=== PATIENT | male | born 1950 | race American Indian/Alaskan Native ===

== ENCOUNTER 2021-04-18 21:56 | Emergency (ER) | payer MEDICARE ==
[2021-04-18] MEDS ORDERED: SODIUM CHLORIDE 0.9% 1000 ML 1,000 ML IV ONE (22:03)
[2021-04-18] MEDS ORDERED: SODIUM CHLORIDE 0.9% 1000 ML 1,000 ML ONE (22:07)
[2021-04-18] MEDS ORDERED: DOPamine 800 MG/D5W 250ML 800 MG/250 ML BAG IV ONE (22:08)
[2021-04-18 22:24] VITALS: BP 112/34
[2021-04-18] MEDS ORDERED: MORPHINE 4 MG/1 ML INJ IV ONE (22:31)
--- NOTE | 2021-04-18 22:33 | Emergency Department Report ---
HPI - General Chief Complaint: Cardiac Arrest/CPR Time Seen by Provider: 04/18/21 22:01 - HPI HPI: 70-year-old male Jewish patient with history of chronic bronchitis brought in by EMS after cardiac arrest with subsequent return of spontaneous c irculation. According to the EMS report, they were called out for unresponsiveness. The patient was found unresponsive by his who called 911. When they arrived the patient was in asystole. CPR was started and ACLS protocol was followed. The patient was given 2 doses of cardiac epi and an amp of bicarbonate and started on epi drip. He was intubated in the field and ROSC was achieved after about 8 minutes of CPR with appropriate end-tidal CO2. Further details of the HPI are limited due to the patient's current clinical condition. Patient does not want to receive any blood products ED Past Medical Hx - Past Medical History Previous Medical History?: Yes Additional medical history: chronic bronchitis ED Review of Systems ROS: Stated complaint: CARDIAC ARREST Other details as noted in HPI Comment: Unobtainable due to pts medical conditions Physical Exam - Physical Exam Vital Signs: Vital Signs 04/18/21 22:14 Pulse Rate 51 L Respiratory 19 Rate Blood Pressure 112/34 [Left] O2 Sat by Pulse 100 Oximetry Physical Exam: GENERAL: Thin and frail elderly male who is obtunded. HEAD: Normocephalic. No obvious signs of trauma. ENT: Dry mucous membranes. Endotracheal tube in place with appropriate condensation. EYES: Pupils are dilated bilaterally and minimally reactive NECK: Trachea is midline. LUNGS: Some spontaneous breathing. Bilateral breath sounds with bag valve ventilation. CARDIOVASCULAR: Bradycardic but with regular rhythm. No murmurs or rubs. VASCULAR: Cap refill < 2 seconds. Strong femoral pulse ABDOMEN: Abdomen is soft and nondistended. There is no significant tenderness, guarding or rebound. : There is what appears to be a strangulated right inguinal hernia which is not reducible. No overlying skin changes. SKIN: Skin is warm and dry NEURO: Patient is obtunded and unresponsive. Not seen moving extremities spontaneously or responding to pain. ED Course Vital Signs 04/18/21 22:14 Pulse Rate 51 L Respiratory 19 Rate Blood Pressure 112/34 [Left] O2 Sat by Pulse 100 Oximetry ED Medical Decision Making - EKG Data -: EKG Interpreted by Me - EKG Data 04/19/21 00:05 Complete heart block with ventricular rate of 53. No Sgarbossa criteria - Medical Decision Making 70-year-old male status post cardiac arrest with subsequent ROSC who was intubated in the field. After ROSC, EKG shows complete heart block with ventricular rate in 40s-50s and blood pressure 60s over 30s. The patient's , Zuleima Nunes arrived just shortly thereafter. I immediately discussed with the patient's his current clinical condition and to obtain further history. She reports that for the past week the patient has been unwell feeling very weak. Over the past several days he has been intermittently unresponsive and having trouble swallowing food and coughing very frequently. She noticed that he was unable to get up from bed. Then today she found him unresponsive. She also states that they had a conversation earlier in the day during which he indicated that he wanted to be DNR and would leave it up to her as to make decisions about his subsequent care. I explained that the patient is in compl ete heart block with hypotension and that his prognosis is very poor. She indicated that he would not want further life preserving measures at this point and in fact states that he would want to be DNR/DNI and removed from the ventilator. Paperwork was signed to make the patient DNR/DNI and for withdrawal of life-saving care including the ventilator. The patient's understood that withdrawal of care would likely result in the patient's imminent . All orders including labs and fluids have been canceled and the ET tube was withdrawn and patient placed on oxygen. I ordered IV morphine to give for comfort. I was asked by nurse to come assess the patient because he has been unresponsive. The patient has no pulse and no heartbeat on auscultation. Time of was called at 11:14 PM. Critical Care Time: Yes Critical care time in (mins) excluding proc time.: 35 Critical care attestation.: If time is entered above; I have spent that time in minutes in the direct care of this critically ill patient, excluding procedure time. Critical care time was spent in evaluation/assessment, work-up, and management of cardiac arrest with return of spontaneous circulation requiring interpretation of EKG, extensive discussion with the patient's , comfort care measures and repeat reevaluation reassessment. ED Disposition Clinical Impression: Cardiac arrest, Complete heart block Disposition: 20 Is pt being admited?: No
--- NOTE | 2021-04-18 23:54 | XRay Report ---
CHEST 1 VIEW 04/18/2021 10:04 PM INDICATION / CLINICAL INFORMATION: cardiac arrest. COMPARISON: None available. FINDINGS: Exam is mildly limited due to overlying defibrillator pad and ambu bag. SUPPORT DEVICES: Endotracheal tube is in good position terminating approximately 7 cm above dave. HEART / MEDIASTINUM: No significant abnormality. LUNGS / PLEURA: Left pleural effusion. Bilateral interstitial markings. No pneumothorax. ADDITIONAL FINDINGS: No significant additional findings. IMPRESSION: 1. Left pleural effusion. 2. Bilateral interstitial opacities compatible with edema. 3. No pneumothorax. 4. Endotracheal tube is in good position. Signer Name: Ollie De La Garza MD Signed: 04/18/2021 10:26 PM Workstation Name: [id number]
--- NOTE | 2021-04-19 14:11 | Electrocardiograph Report ---
[facility] Test Date: 2021-04-18 Test Time: 22:04:46 Pat Name: NIKITA CARVAJAL Department: Room: Gender: M Principal Network Engineer: JOHNY : 1950 Requested By: MERCY LEE Order Number: [id number] Reading MD: David Bergman Measurements Intervals Luana Rate: 53 P: 0 NE: QRS: -99 QRSD: 145 T: 73 QT: 543 QTc: 512 Interpretive Statements Atrial flutter at 135 bpm, with complete A-V dissociation Junctional escape rhythm at 53 bpm Right bundle branch block No previous ECG available for comparison Electronically Signed On 04-19-2021 14:10:46 EST by David Bergman
== END 2021-04-19 06:38 ==
LOC: ED 21:56
DX: I46.9 Cardiac arrest, cause unspecified (principal); I44.2 Atrioventricular block, complete
CPT/HCPCS: 71045; 93005; 93010; 99291; J7030; 31500; Q0162